=== PATIENT | female | born 1990 ===

== ENCOUNTER 2019-05-12 07:46 | Day surgery (SDC) | payer BC ==
[2019-05-12] VITALS (12 sets, daily range): BP systolic 99–124; BP diastolic 57–77
[~2019-05-12] VITALS: Ht 176.5 cm; Wt 62.6 kg
[~2019-05-12 07:46] MED LIST: JUNEL FE 1 MG-1 EACH PO; LEXAPRO10 MG ORAL; NORCO 5-325 TA1 EACH ORAL; cefOXitin Sod 2 GM in D5W 110 ML IVPB ONE
[2019-05-12] MEDS ORDERED: Ropivacaine 5mg/ml Vial 30ml INJ ONE (08:41)
[2019-05-12] MEDS ORDERED: ProvayBlue 5mg/ml 10ml amp INJ ONE (08:45)
[2019-05-12] MEDS ORDERED: fentaNYL 100 mcg/2 mL IV ONE (08:59)
[2019-05-12] MEDS ORDERED: Lidocaine 1% MPF 10mg/ml 5ml ONE (08:59)
[2019-05-12] MEDS ORDERED: Propofol 200mg/20ml IV ONE (08:59)
[2019-05-12] MEDS ORDERED: Midazolam 2mg/2ml Inj ONE (08:59)
[2019-05-12] MEDS ORDERED: TransDerm Scop 1mg/72HR Patch TDERMAL ONE ×2 (09:07→10:30)
[2019-05-12] MEDS ORDERED: Zemuron 50mg/5ml Inj IV ONE (09:07)
[2019-05-12] MEDS ORDERED: Succinylcholine 20mg/ml 10ml vial ONE (09:07)
[2019-05-12] MEDS ORDERED: cefOXitin 1gm Inj ONE (09:09)
[2019-05-12] MEDS ORDERED: NS Irrig 2000ml IRRIG ONE ×3 (09:20→09:48)
[2019-05-12] MEDS ORDERED: Sterile Water For Irrig 2000ml IRRIG ONE (09:30)
--- NOTE | 2019-05-12 09:49 | Pre-Procedure Note/Attestation ---
Pre-Procedure Note/Attestation Complete Prior to Procedure Planned Procedure: not applicable Procedure Narrative: Diagnostic laparoscopy, hysteroscopy, dilation and curettage, possible fulguration of endometriosis Indications for Procedure Pre-Operative Diagnosis: Chronic pelvic pain Attestation I attest that I discussed the nature of the procedure; its benefits; risks and complications; and alternatives (and the risks and benefits of such alternatives ), prior to the procedure, with the patient (or the patient's legal customer relations representative). I attest that, if there was a reasonable possibility of needing a blood transfusion, the patient (or the patient's legal customer relations representative) was given the [facility] standardized written summary, pursuant to the [employer] Blood Safety Act ([place] Health and Safety Code # 1645, as amended). I attest that I re-evaluated the patient just prior to the surgery and that there has been no change in the patient's H&P, except as documented below: Patient has had worsening pain over the last week. Other than this, no interval changes to her H&P Cha Simmons M.D. May 12, 2019 09:49
--- NOTE | 2019-05-12 10:17 | Anethesia Preoperative Eval ---
Anesthesia Pre-op PMH/ROS General Date of Evaluation: May 12, 2019 Time of Evaluation: 09:20 Anesthesiologist: Emilia ASA Score: ASA 2 Mallampati Score Class I : Soft palate, uvula, fauces, pillars visible Class II: Soft palate, uvula, fauces visible Class III: Soft palate, base of uvula visible Class IV: Only hard plate visible Mallampati Classification: Class II Surgeon: Troy Diagnosis: Pelvic pain Surgical Procedure: D&C Hysteroscopy, laparoscopy Anesthesia History: none Family History: no anesthesia problems Allergies: Coded Allergies: No Known Allergies (Unverified , 05/10/19) Medications: see eMAR Patient NPO?: Yes Past Medical History Cardiovascular: Reports: valve dz - asymptomatic mitral valve prolapse; Denies: HTN, CAD, [place], arrhythmia, other Pulmonary: Denies: asthma, COPD, DAYAMI, other Gastrointestinal/Genitourinary: Reports: GERD, other - ureteral stricture; Denies: CRI, ESRD Neurologic/Psychiatric: Reports: depression/anxiety; Denies: dementia, CVA, TIA, other Endocrine: Denies: DM, hypothyroidism, steroids, other HEENT: Denies: cataract (L), cataract (R), glaucoma, TUNUNAK (L), TUNUNAK (R), other Hematology/Immune: Denies: anemia, DVT, bleeding disorder, other Musculoskeletal/Integumentary: Denies: OA, RA, DJD, DDD, edema, other PMH Narrative: as above PSxH Narrative: Laparoscopy Anesthesia Pre-op Phys. Exam Physician Exam Last Vital Signs Date Time Temp Pulse Resp B/P (MAP) Pulse Ox O2 Delivery O2 Flow Rate FiO2 05/12/19 08:42 97.2 84 20 107/67 97 Room Air Constitutional: NAD Neurologic: CN 2-12 intact Cardiovascular: RRR, no M/R/G Respiratory: CTA Gastrointestinal: S/NT/ND Airway Exam Mallampati Score: Class II MO: full Neck: flexible ROM: full Teeth: intact Dentures: no upper, no lower Anesthesia Pre-op A/P Labs see chart Urine Test Test 05/12/19 08:00 Urine HCG, Qualitative Negative (NEGATIVE) Studies Pre-op Studies: EKG - NSR Risk Assessment & Plan Assessment: ASA 2 Plan: GA with ETT PONV prevention Status Change Before Surgery: No Pre-Antibiotics Drug: Cefoxitin 1gr. Given Within 1 Hr of Incision: Yes Time Given: 10:08 Torsten Nieto MD May 12, 2019 10:17
[2019-05-12] MEDS ORDERED: LR 1000ml 1,000 ML IVLG SCH (10:18)
[2019-05-12] MEDS ORDERED: Morphine Sulfate 10mg/ml Inj ONE (10:23)
[2019-05-12] MEDS ORDERED: Neostigmine 1mg/ml 10ml Inj ONE (10:24)
[2019-05-12] MEDS ORDERED: Ketorolac 30mg Inj ONE (10:24)
[2019-05-12] MEDS ORDERED: Sodium Chloride 10ml vial INJ ONE (10:24)
[2019-05-12] MEDS ORDERED: Glycopyrrolate 0.2mg/ml 1ml Vial ONE (10:24)
[2019-05-12] MEDS ORDERED: Ketorolac 30mg Inj IV PRN (10:30)
[2019-05-12] MEDS ORDERED: Meperidine 50mg/ml Inj(FOR RIGORS ONLY) IV PRN (10:30)
[2019-05-12] MEDS ORDERED: Metoclopramide 10mg/2ml Inj IVP PRN (10:30)
[2019-05-12] MEDS ORDERED: Midazolam 2mg/2ml Inj IVP PRN (10:30)
[2019-05-12] MEDS ORDERED: DiphenhydrAMINE 50mg/ml Inj IVP PRN (10:30)
--- NOTE | 2019-05-12 11:14 | Brief Operative Note ---
Immediate Post Operative Note Operative Note Chief Complaint: Chronic pelvic pain on left Pre-op Diagnosis: Chronic pelvic pain Procedure: Diagnostic laparoscopy with enterolysis and fulguration of possible endometriosis, hysteroscopy, dilation and curettage Post-op Diagnosis: Left pelvic sidewall adhesions, possible endometriosis on left sidewall Surgeon: Cha Simmons MD Television News Producer: Keanu Camacho MD Anesthesiologist: Dr. Ortiz Anesthesia: general Specimen: yes - Endometrial curettings Complications: none Condition: stable Fluids: 1L crystalloid Estimated Blood Loss: minimal Drains: none - De La Cruz removed at end of casem 120cc clear urine Implant(s) used?: No Cha Simmons M.D. May 12, 2019 11:14
--- NOTE | 2019-05-12 11:18 | Operative Note - PDOC ---
Operative Note Operative Note Date of Operation/Procedure: May 12, 2019 Chief Complaint: Chronic pelvic pain on left Pre-op Diagnosis: Chronic pelvic pain Procedure: Diagnostic laparoscopy with enterolysis and fulguration of possible endometriosis, hysteroscopy, dilation and curettage Post-op Diagnosis: Left pelvic sidewall adhesions, possible endometriosis on left sidewall Post-op Diagnosis: same as pre-op plus Surgeon: Cha Simmons MD Morning [employer] Producer: Keanu Camacho MD Anesthesiologist: Dr. Ortiz Anesthesia: general Specimen: yes - Endometrial curettings Complications: none Condition: stable Fluids: 1L crystalloid Estimated Blood Loss: minimal Drains: none - De La Cruz removed at end of casem 120cc clear urine Implant(s) used?: No Indications for Procedure Chronic left sided pelvic pain with worsening of pain over the last week Description of Procedure The R/B/A of the procedure were discussed with the patient and informed consent was obtained. The patient was taken to the operating room with IV in place. She was placed on the operating table in dorsal supine position. SCD stockings were placed. General anesthesia was administered without difficulty. The patient was placed in the dorsal lithotomy position with arms tucked at her sides in fashion. She was then prepped and draped in the usual sterile fashion. De La Cruz catheter was placed in the urinary bladder. A time out was called to verify patient and procedure. Monette speculum inserted into the vagina. Anterior lip of the cervix grasped with single-toothed tenaculum. Cervix sequentially dilated to accommodate the diagnostic hysteroscope. Uterus sounded to 7.5cm. Hysteroscope advanced. Uterine cavity was appreciated to be normal. Bilateral ostia visualized and both normal. Hysteroscopy was discontinued and fractional curettage was performed. Endometrial curettings were sent to pathology. The uterine manipulator was inserted and stabilized. All other instruments were removed from the vagina and attention was turned to the abdomen. Incision was made in the superior umbilicus at the site of the patient's prior surgery after infiltration of Naropin. The Veress needle was inserted and the abdomen was insufflated with carbon dioxide gas. Opening pressure 3mmHg. The Veress was withdrawn and a 5mm trochar was inserted into the abdomen under direct visualization. The patient was placed in Trendelenburg and the abdomen and pelvis were thoroughly inspected. Adhesions were noted between the left pelvic sidewall and the large bowel. Additionally there was a small area of white endometriosis which was noted adjacent to the adhesions. The remainder of the abdomen and pelvis, including the gutters, were normal. Ovaries and tubes appeared normal. Uterus appeared normal. Appendix normal. Normal liver edge. A 5mm accessory port was placed in the right lower quadrant under direct visualization after infiltration of Naropin. Attention was turned to the area of adhesions. The adhesions were taken down using a combination of cold cut and monopolar electrosurgery. Excellent hemostasis was noted. The endometriotic implants were fulgurated using monopolar electrosurgery. Excellent hemostasis was noted. The procedure was terminated. The carbon dioxide gas was allowed to escape and all ports were removed under direct visualization. The skin incisions were reapproximated with 4-0 Monocryl, Mastisol and steri-strips. Incisions were covered with gauze and tegaderm. Attention was turned back to the pelvis. The uterine manipulator was removed and hemostasis was noted. All sponge, needle, and instrument counts were correct x 2. The patient was taken to the PACU in stable condition for anticipated discharge home. Follow up with me in the office in 2 weeks. Cha Simmons M.D. May 12, 2019 11:18
--- NOTE | 2019-05-12 11:29 | Immediate Post-Op Evaluation ---
Immediate Post-Op Evalulation Immediate Post-Op Evalulation Procedure: D&C laparoscopic lysis of adhesions Date of Evaluation: May 12, 2019 Time of Evaluation: 11:28 IV Fluids: 1200 Blood Products: none Estimated Blood Loss: min Urinary Output: 120 Blood Pressure Systolic: 114 Blood Pressure Diastolic: 68 Pulse Rate: 76 Respiratory Rate: 20 O2 Sat by Pulse Oximetry: 99 Temperature (Fahrenheit): 97.4 Pain Score (1-10): 1 Nausea: No Vomiting: No Complications none Patient Status: reacts, patent, extubated, none Hydration Status: adequate Torsten Nieto MD May 12, 2019 11:29
[2019-05-12] MEDS ORDERED: HYDROcodone/Acetamin 5/325 tab ORAL PRN (11:30)
[2019-05-12] MEDS ORDERED: D5 1/2NS 1,000 ML IV SCH (11:30)
[2019-05-12] MEDS ORDERED: HYDROmorphone 1mg/ml Carpuject SUBQ PRN (11:30)
--- NOTE | 2019-05-12 12:03 | 48 Hour Post Anesthesia Eval ---
Post Anesthesia Evaluation Procedure: D&C laparoscopic lysis of adhesions Date of Evaluation: May 12, 2019 Time of Evaluation: 12:02 Blood Pressure Systolic: 108 0: 56 Pulse Rate: 74 Respiratory Rate: 20 Temperature (Fahrenheit): 97.5 O2 Sat by Pulse Oximetry: 99 Airway: patent Nausea: No Vomiting: No Pain Intensity: 3 Hydration Status: adequate Cardiopulmonary Status: stable Mental Status/LOC: patient returned to baseline Follow-up Care/Observations: n/a Post-Anesthesia Complications: none Follow-up care needed: ready to discharge Torsten Nieto MD May 12, 2019 12:03
== END 2019-05-12 14:15 | disposition home or self-care (01) ==
LOC: SUR 07:46
DX: R10.2 Pelvic and perineal pain (principal); G89.29 Other chronic pain; N73.6 Female pelvic peritoneal adhesions (postinfective); N80.8 Other endometriosis; K21.9 Gastro-esophageal reflux disease without esophagitis; F32.9 Major depressive disorder, single episode, unspecified; F41.9 Anxiety disorder, unspecified
CPT/HCPCS: 58558; 58662; 81025; J0330; J0694; J1885; J2175; J2250; J2270; J2405; J2704; J2710; J2765; J2795; J3010; 94003; 94150